=== PATIENT | male | born 1965 | race Hispanic/Latino ===

== ENCOUNTER 2025-04-14 11:11 | Observation (INO) | payer MEDICAID ==
[2025-04-14] MEDS ORDERED: Aspirin Chewable 81 MG TAB ONE (11:58)
[2025-04-14 12:21] LABS: #Basophils 0.08 10x3/uL (0.0-0.2); #Eosinophils 0.20 10x3/uL (0.0-0.5); #Monocytes 0.75 10x3/uL (0.0-1.1); #Neutrophils 5.96 10x3/uL (1.5-8.4); %Basophils 0.9 % (0.0-2.0); %Eosinophils 2.3 % (0.0-6.0); %Lymphocytes 17.7 % (18.0-47.0); %Monocytes 8.8 % (0.0-10.0); %Neutrophils 69.7 % (40.0-75.0); Hematocrit 53.0 % (38.8-50.0); Hemoglobin 17.7 g/dL (13.5-17.5); Mean Corpuscular Hemoglobin 31.0 pg (27.0-33.0); Mean Corpuscular Volume 92.8 fL (81.2-95.1); Platelet Count 146 10x3/uL (150-450); Red Blood Cell (RBC) Count 5.71 10x6/uL (4.32-5.72); White Blood Cell (WBC) Count 8.55 10x3/uL (3.5-10.5)
[2025-04-14 12:38] LABS: Anion Gap 13 mmol/L (10-20); BUN (Urea Nitrogen) 10 mg/dL (8.4-25.7); Calc. Creatinine Clearance 0 mL/min (70-130); Carbon Dioxide 27 mmol/L (22-29); Chloride 103 mmol/L (98-107); Potassium 4.3 mmol/L (3.5-5.1); Sodium 139 mmol/L (136-145)
[2025-04-14 12:39] LABS: ALT (SGPT) 23 U/L (Less than 45); AST (SGOT) 23 U/L (11-34); Albumin 4.3 g/dL (3.1-4.5); Alkaline Phosphatase 80 U/L (40-110); Bilirubin, Total 0.7 mg/dL (0.3-1.2); Calcium 9.0 mg/dL (7.8-10.44); Globulin 2.8 g/dL (2.4-3.5); Glucose 106 mg/dL (70-105); Lipase 268 U/L (8-78)
[2025-04-14 12:45] LABS: Troponin I Less than 0.010 ng/mL (< 0.028)
[2025-04-14 15:32] LABS: Troponin I Less than 0.010 ng/mL (< 0.028)
[2025-04-14] MEDS ORDERED: Melatonin 3 MG TAB PO PRN (16:16)
[2025-04-14] MEDS ORDERED: Acetaminophen 325 MG TAB PO PRN (16:16)
[2025-04-14 18:25] LABS: Cardiac Risk 4.4 (Less than 4.5); Cholesterol 132.0 mg/dl (< 200 Desired); HDL Cholesterol 30.0 mg/dL (>60 Neg Risk); LDL Cholesterol, Calculated 69.0 mg/dL; Triglycerides 165.0 mg/dL (Less than 150)
[2025-04-14 22:26] VITALS: BMI 37.5
[2025-04-14] MEDS ORDERED: Ketorolac Tromethamine 30 MG (1 mL) VIAL IVP PRN (22:53)
[2025-04-14] MEDS: Lidocaine 2% Viscous Solution 10 ML, Aluminum & Magnesium Hydroxide 30 ML SSW SCH (23:00)
[2025-04-14] MEDS: Famotidine/PF 20 mg/2ml Vial SLOW IVP SCH (23:00)
[2025-04-14] MEDS ORDERED: Famotidine/PF 20 mg/2ml Vial ONE (23:47)
[2025-04-14] MEDS ORDERED: Lidocaine Viscous Sol 2% 15 ml UD Cup ONE (23:47)
[2025-04-15 05:57] LABS: #Basophils 0.06 10x3/uL (0.0-0.2); #Eosinophils 0.26 10x3/uL (0.0-0.5); #Monocytes 0.64 10x3/uL (0.0-1.1); #Neutrophils 4.77 10x3/uL (1.5-8.4); %Basophils 0.8 % (0.0-2.0); %Eosinophils 3.5 % (0.0-6.0); %Lymphocytes 22.1 % (18.0-47.0); %Monocytes 8.6 % (0.0-10.0); %Neutrophils 64.3 % (40.0-75.0); Hematocrit 51.4 % (38.8-50.0); Hemoglobin 16.9 g/dL (13.5-17.5); Mean Corpuscular Hemoglobin 31.0 pg (27.0-33.0); Mean Corpuscular Volume 94.3 fL (81.2-95.1); Platelet Count 144 10x3/uL (150-450); Red Blood Cell (RBC) Count 5.45 10x6/uL (4.32-5.72); White Blood Cell (WBC) Count 7.42 10x3/uL (3.5-10.5)
[2025-04-15 06:12] LABS: ALT (SGPT) 19 U/L (Less than 45); AST (SGOT) 25 U/L (11-34); Albumin 3.9 g/dL (3.1-4.5); Alkaline Phosphatase 71 U/L (40-110); Anion Gap 10 mmol/L (10-20); BUN (Urea Nitrogen) 9 mg/dL (8.4-25.7); Bilirubin, Total 0.9 mg/dL (0.3-1.2); Calc. Creatinine Clearance 135 mL/min (70-130); Calcium 8.8 mg/dL (7.8-10.44); Carbon Dioxide 30 mmol/L (22-29); Chloride 106 mmol/L (98-107); Globulin 2.6 g/dL (2.4-3.5); Glucose 97 mg/dL (70-105); Lipase 73 U/L (8-78); Potassium 4.8 mmol/L (3.5-5.1); Sodium 141 mmol/L (136-145)
[2025-04-15 08:36] LABS: THC/Cannabinoid Screen PRELIM POSITIVE (Negative)
[2025-04-15 08:37] LABS: Cocaine Metabolite Screen Negative (Negative); Tricyclic Screen Negative (Negative)
[2025-04-15] MEDS: Aspirin 81 mg Enteric Coated Tablet PO SCH (08:40)
[2025-04-15] MEDS: Folic Acid 1 MG TAB PO SCH (08:40)
[2025-04-15] MEDS: Sertraline 25 MG TAB PO SCH (08:41)
[2025-04-15] MEDS: levETIRAcetam 500 MG TAB PO SCH (08:41)
[2025-04-15] MEDS: Enoxaparin 40 MG (0.4 mL) SYRINGE SC SCH (08:47)
[2025-04-15 09:30] VITALS: BP 132/77; TEMP 97.5
== END 2025-04-15 13:50 | disposition home or self-care (01) ==
LOC: CSHERS 11:11 → CSHERHOLD 16:16 → CSHTELE 22:17
PROVIDERS: ADMIT Student in an Organized Health Care Education/Training Program; ATTEND Student in an Organized Health Care Education/Training Program
DX: R07.9 Chest pain, unspecified (principal); I10 Essential (primary) hypertension; K85.90 Acute pancreatitis without necrosis or infection, unspecified; R73.01 Impaired fasting glucose; F31.9 Bipolar disorder, unspecified; R79.89 Other specified abnormal findings of blood chemistry
CPT/HCPCS: 36415; 71045; 76705; 80053; 80061; 80306; 83036; 83690; 83880; 84478; 84484; 85025; 85379; 93005; 94760; 96374; 96376; G0378; J2270; J7030